=== PATIENT | female | born 1980 | race Two or more races ===

== ENCOUNTER 2018-04-22 03:20 | Emergency (ER) | payer BC ==
[~2018-04-22] VITALS: Ht 157.5 cm; Wt 59.9 kg
--- NOTE | 2018-04-22 03:39 | NUR ---
DR ERIK MORRIS MD AT BEDSIDE FOR MSE.
[2018-04-22] MEDS ORDERED: ONDANSETRON 4 MG/2 ML VIAL IV ONE (03:45)
[2018-04-22] MEDS ORDERED: KETOROLAC TROMETHAMINE 15 MG INJ IV ONE (03:45)
--- NOTE | 2018-04-22 03:55 | NUR ---
LAB AT BEDSIDE FOR BLOOD DRAW.
[2018-04-22] MEDS ORDERED: KETOROLAC TROMETHAMINE 15 MG INJ ONE (03:58)
[2018-04-22] MEDS ORDERED: ONDANSETRON 4 MG/2 ML VIAL ONE (03:58)
[2018-04-22 04:09] LABS: BASOPHILS % (AUTO) 0.2 % (0.0-2.0); EOSINOPHILS # (AUTO) 0.2 K/uL (0.0-0.7); EOSINOPHILS % (AUTO) 1.5 % (0.0-7.0); HEMATOCRIT 42.4 % (31.2-41.9); HEMOGLOBIN 14.1 g/dL (10.9-14.3); LYMPHOCYTES # (AUTO) 2.3 K/uL (20.0-40.0); LYMPHOCYTES % (AUTO) 17.7 % (20.5-51.5); MEAN CORPUSCULAR HEMOGLOBIN 29.2 uug (24.7-32.8); MEAN CORPUSCULAR HGB CONC 33 g/dL (32.3-35.6); MEAN CORPUSCULAR VOLUME 87.7 fL (75.5-95.3); MONOCYTES # (AUTO) 0.5 K/uL (2.0-10.0); MONOCYTES % (AUTO) 3.9 % (0.0-11.0); NEUTROPHILS # (AUTO) 10.1 K/uL (1.8-8.9); NEUTROPHILS % (AUTO) 76.7 % (38.5-71.5); PLATELET COUNT (AUTO) 189 K/uL (179-408); RED BLOOD CELL COUNT(AUTO) 4.84 MIL/uL (3.63-4.92); WHITE BLOOD COUNT (AUTO) 13.1 K/uL (3.8-11.8)
[2018-04-22 04:14] LABS: CREATININE 0.9 mg/dL (0.6-1.3); POTASSIUM 3.3 mmol/L (3.5-5.1)
--- NOTE | 2018-04-22 04:14 | NUR ---
RADIOLOGY AT BEDSIDE FOR XRAY
[2018-04-22 04:20] LABS: BILIRUBIN,DIRECT 0.2 mg/dL (0.0-0.2); BILIRUBIN,TOTAL 0.5 mg/dL (0.2-1.0)
[2018-04-22] MEDS ORDERED: MORPHINE SULFATE 4 MG/1 ML DISP.SYRIN ONE (04:22)
[2018-04-22] MEDS ORDERED: MORPHINE SULFATE 2 MG/1 ML DISP.SYRIN IV ONE (04:30)
[2018-04-22] MEDS ORDERED: IV NORMAL SALINE 1000 ML BAG IV ONE (05:30)
--- NOTE | 2018-04-22 05:48 | NUR ---
US AT PT BEDSIDE.
--- NOTE | 2018-04-22 06:17 | NUR ---
PT TAKEN TO CT. NO ACUTE DISTRES NOTED.
--- NOTE | 2018-04-22 07:30 | NUR ---
REPORT GIVEN TO DAY SHIFT RN.
--- NOTE | 2018-04-22 07:35 | NUR ---
Patient is awake and alert, awaiting test results. On continuous cardiac monitoring...
--- NOTE | 2018-04-22 07:45 | NUR ---
Patient also awaiting the arrival of her to drive her home.
--- NOTE | 2018-04-22 08:32 | NUR ---
Patient's here at bedside.
--- NOTE | 2018-04-22 08:40 | NUR ---
Per Dr Davila, test results are "OK" and patient can go home. IV DC'd, catheter tip intact, pressure applied, dressing applied. DC and follow up instructions given and explained to patient who states she understands all instructions. Patient's at bedside to drive her home.
== END 2018-04-22 08:43 | disposition home or self-care (01) ==
LOC: ER 03:25
DX: R10.10 Upper abdominal pain, unspecified (principal)
CPT/HCPCS: 36415; 71045; 74176; 76700; 80048; 80076; 83690; 84484; 84703; 85025; 85379; 93005; 96374; 96375; 99285; A4663; J1885; J2270; J2405; J7030; 70030-TC